=== PATIENT | male | born 1975 | race Caucasian/White ===

== ENCOUNTER 2023-01-21 18:16 | Emergency (ER) | payer MEDICARE, MEDICAID ==
[~2023-01-21] VITALS: Ht 170.2 cm; Wt 86.4 kg
[~2023-01-21 18:16] MED LIST: ACET-2319 PO; DOXY-224 PO; LACT1CAP26 PO
[2023-01-21] MEDS: LIDOCAINE 2%/EPI 1:100,000 inj. Multi-dose 20 ML VIAL SQ ONE (19:34)
--- NOTE | 2023-01-21 19:54 | NUR ---
Agree with assessment of NO [phone].
[2023-01-21 20:56] VITALS: BP 124/86
== END 2023-01-21 22:00 | disposition home or self-care (01) ==
LOC: ER 18:17
DX: S81.812A Laceration without foreign body, left lower leg, initial encounter (principal); Z88.1 Allergy status to other antibiotic agents; Z79.899 Other long term (current) drug therapy
CPT/HCPCS: 12002; 99282; A6446; A6449